=== PATIENT | female | born 1990 | race Caucasian/White ===

== ENCOUNTER 2016-08-15 17:06 | Emergency (ER) | payer OTHER ==
[~2016-08-15] VITALS: Ht 152.4 cm; Wt 81.8 kg
[~2016-08-15 17:06] MED LIST: DOCU-41 PO; IBUP800T28 PO; NOMED; ONDA4TAB9 PO; OXYC1TAB24 PO
[2016-08-15 17:15] VITALS: BP 142/87; PULSE 125; RESP 20; O2SAT 95
[2016-08-15] MEDS ORDERED: Ondansetron 8 mg ODT Tablet PO ONE (20:20)
--- NOTE | 2016-08-15 20:46 | ED.REPORT ---
HPI-NVD Date of Service Aug 15, 2016 ED Provider: Coleman Rivera PA-C Otherwise healthy 26-year-old female with a chief complaint vomiting. She reports that she and her two young children traveled to [place] over the weekend to visit family. Several of her set family members had similar symptoms. Her youngest son became ill with vomiting and diarrhea Monday night at the hotel. She began having symptoms Monday morning. She reports vomiting and watery diarrhea without blood as well as myalgia, abdominal cramps and fatigue. Denies fever, chest pain, difficulty breathing, urinary symptoms, upper respiratory symptoms, headache. Nursing Notes Stated Complaint: NAUSEA Chief Complaint: FLU/Cold Symptoms Nursing Notes Reviewed: Yes Allergies: Coded Allergies: No Known Allergies (Verified Allergy, Unknown, 12/24/13) Scheduled Docusate Sodium (Colace) 100 Mg Capsule 100-200 MG PO BID Ondansetron ODT (Ondansetron ODT) 8 Mg Tab.rapdis 8 MG PO TID Scheduled PRN Ibuprofen (Ibuprofen) 800 Mg Tablet 800 MG PO Q6H PRN PRN For Pain Ondansetron ODT (Zofran ODT) 4 Mg Tablet 4 MG PO Q4H PRN PRN For Nausea oxyCODONE-Acetaminophen 5-325 mg (oxyCODONE-Acetaminophen 5-325 mg) 1 Each Tablet 1-2 TAB PO Q4H PRN PRN For Pain Miscellaneous Medications No Historical Medication (No Historical Medication) Ea General Time Seen by MD: 20:02 Chief Complaint Vomiting Past Medical History Past Medical History none reported Past Surgical History IUD placement Smoking History Former Smoker Social History methadone for heroin use, 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 Head: Atraumatic, normocephalic. Eyes: No scleral icterus or injection. No discharge. Vision grossly intact. ENT: Voice clear, hearing grossly intact. Respiratory: Regular rate and rhythm. Breath sounds present, clear to auscultation and equal bilaterally. Cardiovascular: Regular rate and rhythm, without murmur, gallop or rub. No pedal edema. Gastrointestinal: Abdomen flat and non-tender without guarding or rebound. Bowel sounds normoactive. Skin: Warm and dry. Neurological: Grossly nonfocal. Psychological: Alert and oriented. Speech appropriate, linear and logical. Behavior appropriate. Initial Vital Signs Vital Signs (First) Date Time Temp Pulse Resp B/P Pulse Ox O2 Delivery O2 Flow Rate FiO2 08/15/16 17:15 37.4 125 20 142/87 95 08/15/16 21:12 Room Air Initial VS: Reviewed, Vital signs abnormal (tachycardia, resolved at discharge) Re-Eval/Medical Decision Med Decision/Clinical Course I discussed this case with Dr. Wu Otherwise healthy 26-year-old female presents with chief complaint of vomiting. She reports exposure family members with similar symptoms including vomiting, nonbloody diarrhea, myalgia, fatigue. Her to young children have similar symptoms. Denies headache, upper respiratory symptoms. Physical exam is reassuring. I believe this is a viral gastroenteritis as opposed to bacterial gastroenteritis or carbon monoxide poisoning. The patient responded well to ondansetron. Discharged home with ondansetron prescription, instructions for hydration, BRAT diet, primary care follow-up and return precautions Discharge & Departure Impression: Primary Impression: Viral gastroenteritis Disposition: Home Discharge Condition All VS Reviewed: Yes Condition: Stable Patient Instructions: Gastroenteritis (ED) Additional Instructions: Evaluation for vomiting the emergency department. History is reassuring that this is unlikely to be a bacterial gastroenteritis or another cause such as carbon monoxide poisoning. I believe this is a viral gastroenteritis, which should be self-limiting and improve in the next couple of days. Treatment is supportive. I recommend drinking plenty of fluids such as apple juice with water 50-50, and bland foods such as bananas, rice, applesauce and toast and I will send her with a prescription for ondansetron which will help with the vomiting. I do not typically recommend medicines to prevent diarrhea. Follow- up with her primary care provider if symptoms do not improve in 2-3 days. Return to the emergency department for worsening symptoms such as bloody diarrhea, high fever, increasing abdominal pain. Referrals: William Fuentes MD (PCP) EDSupervising Provider for APC: Kevin Wu DO copies to: William Fuentes MD, Seth PA-C Aug 15, 2016 20:46
[2016-08-15] MEDS ORDERED: ONDA8TAB10 PO (20:49)
[2016-08-15 21:12] VITALS: BP 136/88; PULSE 98; RESP 16; O2SAT 97
== END 2016-08-15 21:13 | disposition home or self-care (01) ==
LOC: SED 17:06
DX: A08.4 Viral intestinal infection, unspecified (principal); M79.1 Myalgia; R53.83 Other fatigue; Z87.891 Personal history of nicotine dependence